=== PATIENT | female | born 1965 | race Caucasian/White ===

== ENCOUNTER → 2024-08-29 15:57 | Outpatient (CLI) | payer BC, SELFPAY ==
[2024-08-29 16:51] LABS: C-Reactive Protein Quant < 0.5 mg/dL (<1.0); Cholesterol 130 mg/dL (140-199); HDL Cholesterol 77 mg/dL (40-60); LDL Cholesterol Calculated 43 mg/dL (<100); Triglycerides 52 mg/dL (35-150)
== END ==
PROVIDERS: PCP Internal Medicine; Referring Provider Internal Medicine Cardiovascular Disease; Visit Provider Internal Medicine Cardiovascular Disease
DX: I65.21 Occlusion and stenosis of right carotid artery (principal); R79.82 Elevated C-reactive protein (CRP)
CPT/HCPCS: 36415; 80061; 86140

== ENCOUNTER → 2024-11-08 13:51 | Outpatient (CLI) | payer BC, SELFPAY ==
--- NOTE | 2024-11-08 | DI.RAD.S_ITS ---
PROCEDURE: FL FLUOROSCOPY >1HR COMPARISON: None. INDICATIONS: DYSPNEA ON EXERTION FINDINGS: Inspiration and expiration under fluoroscopy demonstrated symmetrical movements of the hemidiaphragms. IMPRESSION: Symmetrical hemidiaphragm movements with respiration. Dictated by: Elaine Moss M.D. on 11/08/2024 at 22:02 Approved by: Elaine Moss M.D. on 11/08/2024 at 22:02
== END ==
LOC: RAD 13:53
PROVIDERS: PCP Internal Medicine; Referring Provider Internal Medicine; Visit Provider Radiology Neuroradiology
DX: J45.40 Moderate persistent asthma, uncomplicated (principal); J47.9 Bronchiectasis, uncomplicated; R06.02 Shortness of breath
CPT/HCPCS: 76000

== ENCOUNTER → 2025-07-19 09:14 | Outpatient (CLI) | payer BC, SELFPAY ==
[2025-07-19 10:06] LABS: Add Manual Diff / Slide Review NO; Hematocrit 41.9 % (36-46); Hemoglobin 14.2 g/dL (12.0-16.0); Lymphocytes Absolute Auto 900 /uL (1100-4500); Mean Corpuscular HGB Conc 33.9 % (30-36); Mean Corpuscular Hemoglobin 32.2 PG (26-34); Mean Corpuscular Volume 94.9 fL (80-100); Platelet Count 165 X10^3/uL (150-400)
== END ==
PROVIDERS: PCP Nurse Practitioner Primary Care; Referring Provider Internal Medicine Critical Care Medicine; Visit Provider Internal Medicine Critical Care Medicine
DX: J45.40 Moderate persistent asthma, uncomplicated (principal)
CPT/HCPCS: 36415; 85025; 86003